=== PATIENT | male | born 1995 | race Caucasian/White ===

== ENCOUNTER 2024-02-26 20:00 | Emergency (ER) | payer MEDICAID, OTHER ==
[~2024-02-26] VITALS: Ht 167.6 cm; Wt 78.0 kg
[2024-02-26 20:12] VITALS: TEMP 98.2; O2SAT 100
[2024-02-26 22:00] VITALS: BP 140/92; PULSE 86; RESP 20
[2024-02-26] MEDS: HYDROCODONE/ACETAMINOPHEN 5/325MG TABLET PO ONE (22:00)
[2024-02-26] MEDS ORDERED: LIDOCAINE HCL/PF 1% 10 MG/ML 5ML VIAL INFIL ONE (22:00)
== END 2024-02-27 00:15 | disposition left against medical advice (07) ==
LOC: ER 20:00
DX: S60.453A Superficial foreign body of left middle finger, initial encounter (principal); F41.9 Anxiety disorder, unspecified; L03.012 Cellulitis of left finger; Y92.89 Other specified places as the place of occurrence of the external cause
CPT/HCPCS: 64400; 64450; 99284

== ENCOUNTER 2025-06-22 13:28 | Emergency (ER) | payer OTHER, MEDICAID ==
[~2025-06-22] VITALS: Ht 167.6 cm; Wt 69.0 kg
[2025-06-22 13:32] VITALS: O2SAT 99
[2025-06-22 15:10] VITALS: BP 140/88; PULSE 88; RESP 16; TEMP 36.6; O2SAT 99
== END 2025-06-22 15:15 ==
LOC: ER 13:28
DX: M25.561 Pain in right knee (principal); M25.562 Pain in left knee; F41.9 Anxiety disorder, unspecified
CPT/HCPCS: 99283; 73562; A6449